=== PATIENT | female | born 1990 | race Two or more races ===

== ENCOUNTER → 2019-01-23 | Outpatient (CLI) | payer OTHER | END | disposition home or self-care (01) | LOC: CFH 08:31 | PROVIDERS: ATTEND Otolaryngology | DX: H93.A9 Pulsatile tinnitus, unspecified ear (principal); H69.93 Unspecified Eustachian tube disorder, bilateral; M19.90 Unspecified osteoarthritis, unspecified site; F17.200 Nicotine dependence, unspecified, uncomplicated; Z88.2 Allergy status to sulfonamides | CPT/HCPCS: 70480 ==

== ENCOUNTER 2020-04-11 09:02 | Outpatient (CLI) | payer BC | END 2020-04-11 23:59 | disposition home or self-care (01) | LOC: LAB 09:02 | PROVIDERS: ATTEND Family Medicine | DX: Z02.9 Encounter for administrative examinations, unspecified (principal) ==